=== PATIENT | female | born 1965 | race Caucasian/White ===

== ENCOUNTER 2020-05-27 10:42 | Outpatient (REF) | payer OTHER, SELFPAY | END 2020-05-27 10:43 | disposition home or self-care (01) | LOC: HO.HMGCLDS 10:42 | PROVIDERS: PCP Internal Medicine; Visit Provider Internal Medicine | DX: Z20.828 Contact with and (suspected) exposure to other viral communicable diseases (principal) | CPT/HCPCS: U0003 ==

== ENCOUNTER 2020-12-07 15:02 | Outpatient (REF) | payer OTHER, SELFPAY ==
--- NOTE | ~2020-12-07 | XR_ITS ---
EXAMINATION: XR ANKLE, RIGHT CLINICAL INFORMATION: Trauma, pain COMPARISON: None TECHNIQUE: AP, lateral, and mortise views of the right ankle. FINDINGS: There is no fracture dislocation or visible ankle capsular effusion. The malleoli are intact and the ankle mortise is symmetric. The retrocalcaneal recess is preserved. The subtalar joint is unremarkable. There are bulky posterior and plantar calcaneal spurs. XR/XR ankle RT min 3V IMPRESSION: 1. No fracture or dislocation. 2. Bulky posterior and plantar calcaneal spurs.
== END 2020-12-07 15:03 | disposition home or self-care (01) ==
LOC: HO.HMGCX 15:02
PROVIDERS: PCP Internal Medicine; Visit Provider Internal Medicine
DX: S99.911A Unspecified injury of right ankle, initial encounter (principal)
CPT/HCPCS: 73610

== ENCOUNTER 2021-02-21 17:00 | Outpatient (RCR) | payer OTHER, SELFPAY ==
--- NOTE | 2021-01-11 18:17 | MHC.PT.EP ---
[facility] [place] Office [place] Office [place] Office [address] Wilman Kirby [address] [phone] F: [phone] F: [phone] F: [phone] F: [phone] Physical Therapy Plan of Care Date of Evaluation: Date of Surgery: Diagnosis: unspecified injury of right ankle Assessment: 55 y/o F referred to PT for unspecified injury of R ankle. She reports the injury occurred while at work on 12/06/20 when she left the back door and thinks she may have twisted it on uneven surface. She followed up with Dr. Laurent, but continued to walk without restrictions and some pain. X-ray indicated no fracture. Currently pt reports pain and difficulty with increased sitting, walking, getting into/out of car, and stairs. Assessment reveals decreased R ankle AROM, decreased R gastroc length, tenderness of R fibular region and ankle, increased pain, decreased strength, and impaired gait pattern. Recommend PT 2x/week for 5 weeks to address impairments, implement HEP, and optimize functional mobility. Frequency and Duration: The patient will be seen 2x/week for 5 weeks Short Term Goals: 3 weeks: 1. I with HEP 2. Increase R ankle ROM DF by 5 degrees Fdc Goals: 5 weeks: 1. I with HEP and self-management of sx 2. Pt will be able to navigate stairs in step-through pattern with pain <3/10 3. Pt will be able to ambulate >30min with pain <3/10 Treatment Plan: Modalities to reduce pain, spasms and effusion. Manual therapy to restore motion and function. Therapeutic exercise to improve strength and flexibility. Neuromuscular re-education for posture and balance. Therapeutic activities to return to functional activities of daily living. Electronically signed by: Jolie Cheatham PT Please sign and return to therapist. Thank you for your referral.
--- NOTE | 2021-04-14 11:33 | MHC.PT.DC ---
[facility] [place] Office [place] Office [place] Office [address] Wilman Kirby [address] [phone] F: [phone] F: [phone] F: [phone] F: [phone] Physical Therapy Discharge Report Diagnosis: unspecified injury of right ankle Date of Surgery: Date of Evaluation: 01/11/21 Date of Discharge: 04/14/21 Treatments to Date: 9 Cancellations to Date: 0 No Shows to Date: 0 Discharge Status: Independent with HEP Visit Non-compliance Discharge Summary: Pt did not f/u with further visits. At time of last visit, pt was I with HEP Electronically signed by: Jolie Cheatham PT Please sign and return to therapist. Thank you for your referral.
== END 2021-04-14 11:34 | disposition home or self-care (01) ==
LOC: HO.PTCHIC 17:00
PROVIDERS: PCP Internal Medicine; Visit Provider Internal Medicine
DX: S99.911A Unspecified injury of right ankle, initial encounter (principal)
CPT/HCPCS: 97014; 97110; 97140; 97161; 97530

== ENCOUNTER → 2021-06-30 09:24 | Outpatient (BNVA) | payer OTHER, SELFPAY | PROVIDERS: PCP Internal Medicine; Visit Provider Orthopaedic Surgery | DX: S99.911A Unspecified injury of right ankle, initial encounter (principal) | CPT/HCPCS: 99202 ==

== ENCOUNTER 2021-07-14 09:22 | Outpatient (REF) | payer OTHER, SELFPAY ==
[2021-07-14 11:39] LABS: Hematocrit 45.8 % (37.0-47.0); Hemoglobin 15.3 g/dl (12.0-16.0); Mean Corpuscular HGB Conc 33.4 g/dl (31.0-35.0); Mean Corpuscular Hemoglobin 29.9 pg (27.0-33.0); Mean Corpuscular Volume 89.5 fL (80.0-98.0); Mean Platelet Volume 11.6 fL (9.4-12.3); Platelet Count 246 X10*3/uL (160-400); Red Blood Count 5.12 X10*6/uL (4.20-5.50); Red Cell Distribution Width 12.8 % (11.0-16.0); White Blood Count 5.8 X10*3/uL (4.8-10.8)
[2021-07-14 12:05] LABS: TSH reflex Free T4 0.18 uIU/mL (0.32-4.0)
[2021-07-14 12:12] LABS: Alanine Aminotransferase 41 U/L (0-31); Albumin Level 4.3 g/dL (3.5-5.0); Alkaline Phosphatase 63 U/L (39-117); Anion Gap 12 (12-20); Aspartate Amino Transferase 23 U/L (5-31); Bilirubin Total 0.5 mg/dL (0.0-1.0); Blood Urea Nitrogen 22 mg/dL (9-16); Calcium 9.4 mg/dL (8.4-10.2); Carbon Dioxide 26 mmol/L (22-29); Chloride 107 mmol/L (96-108); Cholesterol 265 mg/dL; Estimated Glomerular Filt Rate > 60; Glucose Fasting 116 mg/dL (60-99); HDL Cholesterol 50 mg/dL; LDL Cholesterol Calculated 188 mg/dl; Potassium 4.2 mmol/L (3.3-5.1); Sodium 141 mmol/L (135-145); Total Protein 7.3 g/dL (6.5-8.0); Triglycerides 135 mg/dL
[2021-07-14 13:18] LABS: Free T4 (Free Thyroxine) 1.14 ng/dL (0.71-1.85)
== END 2021-07-14 09:23 | disposition home or self-care (01) ==
LOC: HO.HMGCLDS 09:22
PROVIDERS: PCP Internal Medicine; Visit Provider Internal Medicine
DX: E78.5 Hyperlipidemia, unspecified (principal); I10 Essential (primary) hypertension
CPT/HCPCS: 36415; 80053; 80061; 84439; 84443; 85027

== ENCOUNTER 2021-09-28 06:22 | Outpatient (REF) | payer OTHER, SELFPAY ==
[2021-09-28 11:38] LABS: Alanine Aminotransferase 53 U/L (0-31); Albumin Level 4.2 g/dL (3.5-5.0); Alkaline Phosphatase 62 U/L (39-117); Anion Gap 12 (12-20); Aspartate Amino Transferase 28 U/L (5-31); Bilirubin Total 0.9 mg/dL (0.0-1.0); Blood Urea Nitrogen 15 mg/dL (9-16); Calcium 9.5 mg/dL (8.4-10.2); Carbon Dioxide 28 mmol/L (22-29); Chloride 104 mmol/L (96-108); Estimated Glomerular Filt Rate > 60; Glucose Fasting 118 mg/dL (60-99); Potassium 3.9 mmol/L (3.3-5.1); Sodium 140 mmol/L (135-145); Total Protein 7.1 g/dL (6.5-8.0)
[2021-09-28 11:39] LABS: Estimated Average Glucose 108 mg/dL; Hemoglobin A1c % 5.4 %
[2021-09-28 12:01] LABS: TSH reflex Free T4 0.08 uIU/mL (0.32-4.0)
[2021-09-28 12:37] LABS: Free T4 (Free Thyroxine) 1.18 ng/dL (0.71-1.85)
== END 2021-09-28 06:23 | disposition home or self-care (01) ==
LOC: HO.HMGCLDS 06:22
PROVIDERS: Visit Provider Internal Medicine
DX: E03.9 Hypothyroidism, unspecified (principal); I10 Essential (primary) hypertension; R73.9 Hyperglycemia, unspecified
CPT/HCPCS: 36415; 80053; 83036; 84439; 84443

== ENCOUNTER 2022-04-16 06:21 | Outpatient (REF) | payer OTHER, SELFPAY ==
[2022-04-16 11:54] LABS: Estimated Average Glucose 105 mg/dL; Hemoglobin A1c % 5.3 %
[2022-04-16 12:05] LABS: Alanine Aminotransferase 41 U/L (0-31); Albumin Level 4.1 g/dL (3.5-5.0); Alkaline Phosphatase 58 U/L (39-117); Anion Gap 15 (12-20); Aspartate Amino Transferase 28 U/L (5-31); Bilirubin Total 0.8 mg/dL (0.0-1.0); Blood Urea Nitrogen 20 mg/dL (9-16); Calcium 9.6 mg/dL (8.4-10.2); Carbon Dioxide 25 mmol/L (22-29); Chloride 104 mmol/L (96-108); Cholesterol 264 mg/dL; Estimated Glomerular Filt Rate > 60; Glucose Fasting 111 mg/dL (60-99); HDL Cholesterol 54 mg/dL; LDL Cholesterol Calculated 189 mg/dl; Potassium 3.9 mmol/L (3.3-5.1); Sodium 140 mmol/L (135-145); Total Protein 6.8 g/dL (6.5-8.0); Triglycerides 108 mg/dL
[2022-04-16 12:07] LABS: TSH reflex Free T4 0.57 uIU/mL (0.32-4.0)
[2022-04-16 12:16] LABS: Creatinine Urine 135.44 mg/dL; Microalbum/Creatinine Ratio Ur 6.6 ug/mg cr
== END 2022-04-16 06:22 | disposition home or self-care (01) ==
LOC: HO.HMGCLDS 06:21
PROVIDERS: PCP Internal Medicine; Visit Provider Internal Medicine
DX: Z00.00 Encounter for general adult medical examination without abnormal findings (principal); E78.5 Hyperlipidemia, unspecified; R73.9 Hyperglycemia, unspecified; E03.9 Hypothyroidism, unspecified
CPT/HCPCS: 36415; 80053; 80061; 82043; 83036; 84443

== ENCOUNTER 2022-12-06 06:06 | Outpatient (REF) | payer BC, SELFPAY ==
[2022-12-06 11:23] LABS: MANUAL DIFF FLAG NO
[2022-12-06 11:31] LABS: Appearance Urine Turbid; Color Urine Dark Yellow; Glucose Urine UA Negative (Negative); Leukocyte Esterase Urine Trace (Negative); Nitrite Urine Negative (Negative); PH 5.5 (5.0-9.0); Specific Gravity - Urine 1.025 (1.005-1.025); UMIC TRIGGER UA YES; Urine Blood Negative (Negative); Urine Ketones Negative (Negative); Urine Protein Negative (Neg-Trace)
[2022-12-06 11:38] LABS: Bacteria Urine 2+ (None Seen); Hyaline Casts Urine 0-2 /LPF (0-2); RBC Urine 0-2 /HPF (0-2); WBC Urine 0-5 /HPF (0-5)
[2022-12-06 11:44] LABS: Basophils Percent Auto 0.4 % (0-2); Eosinophils Absolute Auto 0.2 X10*3/uL (0.0-0.4); Eosinophils Percent Auto 3.6 % (0-4); Hematocrit 46.1 % (37.0-47.0); Hemoglobin 15.3 g/dl (12.0-16.0); Imm Gran Abs Auto 0.01 X10*3/uL (0.00-0.03); Imm Gran Pct Auto 0.2 % (0.0-0.4); Lymphocytes Absolute Auto 1.2 X10*3/uL (1.2-4.9); Lymphocytes Percent Auto 26.2 % (20-40); Mean Corpuscular HGB Conc 33.2 g/dl (31.0-35.0); Mean Corpuscular Hemoglobin 29.8 pg (27.0-33.0); Mean Corpuscular Volume 89.9 fL (80.0-98.0); Mean Platelet Volume 12.2 fL (9.4-12.3); Monocytes Absolute Auto 0.4 X10*3/uL (0.1-1.2); Monocytes Percent Auto 7.4 % (2-11); Neutrophils Absolute Auto 2.9 x10*3/uL (2.0-8.3); Neutrophils Percent Auto 62.2 % (45-73); Platelet Count 233 X10*3/uL (160-400); Red Blood Count 5.13 X10*6/uL (4.20-5.50); Red Cell Distribution Width 13.4 % (11.0-16.0); White Blood Count 4.7 X10*3/uL (4.8-10.8)
[2022-12-06 12:14] LABS: Alanine Aminotransferase 38 U/L (0-31); Albumin Level 4.3 g/dL (3.5-5.0); Alkaline Phosphatase 58 U/L (39-117); Anion Gap 14 (12-20); Aspartate Amino Transferase 22 U/L (5-31); Bilirubin Total 1.2 mg/dL (0.0-1.0); Blood Urea Nitrogen 19 mg/dL (9-16); Calcium 9.3 mg/dL (8.4-10.2); Carbon Dioxide 26 mmol/L (22-29); Chloride 105 mmol/L (96-108); Cholesterol 262 mg/dL; Estimated Glomerular Filt Rate > 60; Glucose Fasting 100 mg/dL (60-99); HDL Cholesterol 50 mg/dL; LDL Cholesterol Calculated 187 mg/dl; Potassium 3.8 mmol/L (3.3-5.1); Sodium 141 mmol/L (135-145); Triglycerides 127 mg/dL
[2022-12-06 12:18] LABS: TSH reflex Free T4 0.15 uIU/mL (0.32-4.0)
[2022-12-06 12:22] LABS: Estimated Average Glucose 103 mg/dL; Hemoglobin A1c % 5.2 %
[2022-12-06 14:27] LABS: Free T4 (Free Thyroxine) 1.36 ng/dL (0.71-1.85)
== END 2022-12-06 06:07 | disposition home or self-care (01) ==
LOC: HO.HMGCLDS 06:06
PROVIDERS: PCP Internal Medicine; Visit Provider Internal Medicine
DX: Z00.00 Encounter for general adult medical examination without abnormal findings (principal); E03.9 Hypothyroidism, unspecified; R73.9 Hyperglycemia, unspecified; E78.5 Hyperlipidemia, unspecified
CPT/HCPCS: 36415; 80053; 80061; 81001; 83036; 84439; 84443; 85025

== ENCOUNTER 2023-02-07 08:16 | Outpatient (REF) | payer BC, SELFPAY ==
--- NOTE | ~2023-02-07 | US_ITS ---
EXAMINATION: US ABDOMEN COMPLETE CLINICAL INFORMATION: Other specified abnormal findings of blood chemistry. COMPARISON: Ultrasound abdomen complete 01/16/2019. TECHNIQUE: Real-time imaging of the abdominal viscera. FINDINGS: PANCREAS: The pancreas is somewhat echogenic. No suspicious mass ABDOMINAL AORTA: The proximal, mid, and distal segments are normal in caliber. INFERIOR VENA CAVA: Visualized portions are normal. LIVER: The liver is normal in size. The liver contour is normal. There is diffuse increased liver parenchymal echogenicity, consistent with hepatic steatosis. Suspect areas of sparing. No focal hepatic lesion. There is no intrahepatic biliary duct dilatation seen. GALLBLADDER: Normal. The gallbladder is physiologically distended without evidence of stones, sludge, polyps, wall thickening or pericholecystic fluid. COMMON BILE DUCT: Normal in caliber measuring 0.3 cm in diameter. RIGHT KIDNEY: There are bright reflectors without shadowing. 2. Right reflectors were measured. In the upper pole there are bright reflectors close to the cortex measuring 0.6 cm. A second bright reflector measures 0.3 cm. No hydronephrosis or focal parenchymal lesions. The kidney measures 11.6 cm in maximum dimension. LEFT KIDNEY: The left renal contour is slightly lobular. There is a 1.6 cm nearly anechoic lobular structure extending to the cortex in the interpolar kidney. There may be some overlying cortical atrophy. There is a 0.3 cm bright reflector without shadowing. No hydronephrosis or other focal parenchymal lesions. The kidney measures 11.5 cm in maximum dimension. SPLEEN: Normal. The spleen measures 10.7 cm in maximum dimension. FREE FLUID: None. US/US abdomen complete IMPRESSION: There is no dilation of the urinary collecting system. There is no cholelithiasis or biliary dilation. Suspect fatty liver. Bright reflectors in each kidney could represent nonobstructing nonshadowing calculi. A cyst in the left kidney appears to have decreased in size. This does not require any further evaluation
== END 2023-02-07 08:17 | disposition home or self-care (01) ==
LOC: HO.HMGCX 08:16
PROVIDERS: PCP Internal Medicine; Visit Provider Internal Medicine
DX: M79.89 Other specified soft tissue disorders (principal)
CPT/HCPCS: 76700

== ENCOUNTER 2023-04-25 13:43 | Outpatient (AMB) | payer BC, SELFPAY ==
--- NOTE | 2023-04-25 13:44 | MHC.PC.OV ---
Vital Signs 04/25/23 13:45 Height 5 ft 4 in Weight 246 lb BMI 42.2 BP 122/74 Blood Pressure Location Lt brachial Position Sitting Pulse 80 Pulse Source Pulse Oximeter Pulse Oximetry (%) 97 Oxygen Delivery Method Room Air Intake Visit Reasons: Follow up on abdominal pain Intake Note: Pt is here today for a follow up visit. Pt states that she is still having R abdominal pain that radiates to her back. Allergies penicillin V Allergy (Unknown, Verified 01/31/23 12:23) rash Medication List - Last Reconciled 04/25/23 by Kenna Aden MD amlodipine-olmesartan 5-40 mg 1 tab PO DAILY [custom molded semi rigid orthosis As directed] fluticasone propionate 50 mcg/actuation 1 spray intranasal DAILY leg brace (RUTH Ankle Brace) As directed levothyroxine 125 mcg PO DAILY meloxicam 15 mg PO DAILY triamterene-hydrochlorothiazid 37.5-25 mg 1 tab PO DAILY Tobacco use date assessed: 04/25/23 HPI Follow up on abdominal pain HPI Details Pt c/o RUQ abd lower right-sided chest on and off for 2 weeks, no related to food intake, no N/V/ change in BM, dysuria, fever, chills. Abd US in 02/17 c/w fatty liver, nl gallbladder, non obstructing kidneys stones. [facility] Medical History Annual physical exam Hyperglycemia Hyperlipidemia Hypothyroid Overweight Right ankle injury Family History (Updated 04/25/23 @ 13:50 by Farzana Calle [facility]) Father Asthma Mother No problems noted. Social History Housing: House Alcohol intake: current Alcohol intake frequency: a few times a month Patient Tobacco Use Status: Never used Tobacco e-Cigarette/Vaping Use: Never Used Current occupational status: employed Cognitive needs: No Hearing needs: No Vision needs: Yes Questionnaire Thrive Questionnaire Date Thrive assessed: 12/07/22 MERCY-7 AMB Questionnaire MERCY-7 Date MERCY - 7 assessed: 12/07/22 Source: Developed by Drs. Beau Elliott, Melinda Carbajal, Tanner Estrada and colleagues, with an educational geovanny from [employer]. Review of Systems Const All systems reviewed & are unremarkable except as noted in HPI and below Eyes Reports no additional complaints ENT Reports no additional complaints Card Reports no additional complaints Resp Reports no additional complaints GI Reports no additional complaints Reports no additional complaints Physical exam (Primary Care) Vital Signs: Last Vital Signs Pulse 80 04/25/23 13:45 BP 122/74 04/25/23 13:45 Pulse Ox 97 04/25/23 13:45 Oxygen Delivery Method Room Air 04/25/23 13:45 BMI result Body Mass Index 42.2 Tobacco/Smoking Status: Tobacco use Status Tobacco use date assessed 04/25/23 04/25/23 13:53 Patient Tobacco Use Status Never used Tobacco 04/25/23 13:53 e-Cigarette/Vaping Use Never Used 04/25/23 13:53 Thrive Assessment: Date of Thrive Assessment Date Thrive assessed 12/07/22 04/25/23 13:53 Const General: no acute distress HENMT Throat: Yes posterior oropharynx normal Neck Neck: Yes supple Chest Chest palpation & inspection: localized rib tenderness with anteroposterior compression (right lower chest) Resp Effort & Inspection: normal respiratory effort Auscultation: clear to auscultation bilaterally Cardio Rhythm: regular rhythm Heart sounds: S1 normal heart sound present and S2 normal heart sound present GI Inspection: Yes normal to inspection Palpation (GI): Soft to palpation Percussion: Yes normal to percussion Auscultation: normal bowel sounds Assessment and Plan Assessment & Plan (1) Rib pain on right side: Code(s): R07.81 - Pleurodynia Plan: supportive care discussed (2) HTN (hypertension): Code(s): I10 - Essential (primary) hypertension Plan: cont meds Coding Level of Care Code Est Pt Level 3 (34701) Diagnoses Rib pain on right side R07.81 HTN (hypertension) I10
[2023-04-25 13:45] VITALS: BP 122/74; PULSE 80; O2SAT 97; BMI 42.2
== END 2023-04-25 14:45 | disposition home or self-care (01) ==
PROVIDERS: PCP Internal Medicine; Visit Provider Internal Medicine
DX: R07.81 Pleurodynia (principal); I10 Essential (primary) hypertension
CPT/HCPCS: 99213

== ENCOUNTER 2023-06-08 08:37 | Outpatient (REF) | payer BC, SELFPAY ==
[2023-06-08 12:02] LABS: MANUAL DIFF FLAG NO
[2023-06-08 12:11] LABS: Basophils Percent Auto 0.6 % (0-2); Eosinophils Absolute Auto 0.2 X10*3/uL (0.0-0.4); Eosinophils Percent Auto 3.9 % (0-4); Hematocrit 45.1 % (37.0-47.0); Imm Gran Abs Auto 0.02 X10*3/uL (0.00-0.03); Imm Gran Pct Auto 0.4 % (0.0-0.4); Lymphocytes Absolute Auto 1.6 X10*3/uL (1.2-4.9); Lymphocytes Percent Auto 28.9 % (20-40); Mean Corpuscular HGB Conc 33.3 g/dl (31.0-35.0); Mean Corpuscular Hemoglobin 30.4 pg (27.0-33.0); Mean Corpuscular Volume 91.5 fL (80.0-98.0); Mean Platelet Volume 11.7 fL (9.4-12.3); Monocytes Absolute Auto 0.3 X10*3/uL (0.1-1.2); Neutrophils Absolute Auto 3.2 x10*3/uL (2.0-8.3); Neutrophils Percent Auto 60.2 % (45-73); Platelet Count 269 X10*3/uL (160-400); Red Blood Count 4.93 X10*6/uL (4.20-5.50); Red Cell Distribution Width 12.6 % (11.0-16.0); White Blood Count 5.4 X10*3/uL (4.8-10.8)
[2023-06-08 12:34] LABS: Alanine Aminotransferase 29 U/L (0-31); Albumin Level 4.2 g/dL (3.5-5.0); Alkaline Phosphatase 61 U/L (39-117); Anion Gap 14 (12-20); Aspartate Amino Transferase 22 U/L (5-31); Bilirubin Total 0.7 mg/dL (0.0-1.0); Blood Urea Nitrogen 15 mg/dL (9-16); Calcium 9.3 mg/dL (8.4-10.2); Carbon Dioxide 25 mmol/L (22-29); Chloride 105 mmol/L (96-108); Cholesterol 260 mg/dL (<200); Estimated Glomerular Filt Rate > 60; Glucose Fasting 105 mg/dL (60-99); HDL Cholesterol 59 mg/dL (>40); LDL Cholesterol Calculated 178 mg/dL (<100); Potassium 3.8 mmol/L (3.3-5.1); Sodium 140 mmol/L (135-145); Total Protein 7.3 g/dL (6.5-8.0); Triglycerides 115 mg/dL (<150)
[2023-06-08 12:39] LABS: TSH reflex Free T4 0.54 uIU/mL (0.32-4.0)
== END 2023-06-08 08:38 | disposition home or self-care (01) ==
LOC: HO.HMGCLDS 08:37
PROVIDERS: PCP Internal Medicine; Visit Provider Internal Medicine
DX: R73.9 Hyperglycemia, unspecified (principal); E03.9 Hypothyroidism, unspecified; E78.5 Hyperlipidemia, unspecified; I10 Essential (primary) hypertension
CPT/HCPCS: 36415; 80053; 80061; 84443; 85025

== ENCOUNTER 2023-06-10 13:41 | Outpatient (AMB) | payer BC, SELFPAY ==
--- NOTE | 2023-06-10 13:57 | MHC.PC.OV ---
Vital Signs 06/10/23 13:59 Height 5 ft 4 in Weight 252 lb BMI 43.3 BP 126/82 Blood Pressure Location Lt brachial Position Sitting Pulse 70 Pulse Source Pulse Oximeter Pulse Oximetry (%) 94 Oxygen Delivery Method Room Air Intake Visit Reasons: 4 month Follow up Allergies penicillin V Allergy (Unknown, Verified 06/10/23 13:59) rash Medication List - Last Reconciled 06/10/23 by Kenna Aden MD amlodipine-olmesartan 5-40 mg 1 tab PO DAILY [custom molded semi rigid orthosis As directed] fluticasone propionate 50 mcg/actuation 1 spray intranasal DAILY leg brace (RUTH Ankle Brace) As directed levothyroxine 125 mcg PO DAILY meloxicam 15 mg PO DAILY triamterene-hydrochlorothiazid 37.5-25 mg 1 tab PO DAILY Tobacco use date assessed: 04/25/23 HPI 4 month Follow up HPI Details Patient presents for the follow-up on hypertension and hypothyroidism stable on current medications. [facility] Medical History Annual physical exam Hyperglycemia Hyperlipidemia Hypothyroid Overweight Right ankle injury Family History (Updated 04/25/23 @ 13:50 by Farzana Calle [facility]) Father Asthma Mother No problems noted. Social History Housing: House Alcohol intake: current Alcohol intake frequency: a few times a month Patient Tobacco Use Status: Never used Tobacco e-Cigarette/Vaping Use: Never Used Current occupational status: employed Cognitive needs: No Hearing needs: No Vision needs: Yes Questionnaire Thrive Questionnaire Date Thrive assessed: 12/07/22 MERCY-7 AMB Questionnaire MERCY-7 Date MERCY - 7 assessed: 12/07/22 Source: Developed by Drs. Beau Elliott, Melinda Carbajal, Tanner Estrada and colleagues, with an educational geovanny from [employer]. Review of Systems Const All systems reviewed & are unremarkable except as noted in HPI and below Reports no additional complaints Eyes Reports no additional complaints ENT Reports no additional complaints Card Reports no additional complaints Resp Reports no additional complaints GI Reports no additional complaints Reports no additional complaints Physical exam (Primary Care) Vital Signs: Last Vital Signs Pulse 70 06/10/23 13:59 BP 126/82 06/10/23 13:59 Pulse Ox 94 06/10/23 13:59 Oxygen Delivery Method Room Air 06/10/23 13:59 BMI result Body Mass Index 43.3 Tobacco/Smoking Status: Tobacco use Status Tobacco use date assessed 04/25/23 06/10/23 14:01 Patient Tobacco Use Status Never used Tobacco 06/10/23 14:01 e-Cigarette/Vaping Use Never Used 06/10/23 14:01 Thrive Assessment: Date of Thrive Assessment Date Thrive assessed 12/07/22 06/10/23 14:01 Const General: no acute distress HENMT Mouth: Normal oral and palatal mucosa present Neck Neck: Yes supple Resp Effort & Inspection: normal respiratory effort Auscultation: clear to auscultation bilaterally Cardio Rhythm: regular rhythm Heart sounds: S1 normal heart sound present and S2 normal heart sound present GI Inspection: Yes normal to inspection Palpation (GI): Soft to palpation Assessment and Plan Assessment & Plan (1) Hyperlipidemia: Comment: hyperlipidemia refuses statins Code(s): E78.5 - Hyperlipidemia, unspecified Plan: Continue low-cholesterol diet (2) Hyperglycemia: Code(s): R73.9 - Hyperglycemia, unspecified Plan: cont ADA diet, increase exercise, weight loss discussed (3) Hypothyroid: Code(s): E03.9 - Hypothyroidism, unspecified Plan: cont Levothyroxine (4) HTN (hypertension): Code(s): I10 - Essential (primary) hypertension Plan: cont meds, PE in 6 months Orders: Orders Comprehensive [place]. Panel Fast 6 Months E03.9 - Hypothyroidism, unspecified, E78.5 - Hyperlipidemia, unspecified, I10 - Essential (primary) hypertension, R73.9 - Hyperglycemia, unspecified TSH reflex Free T4 6 Months E03.9 - Hypothyroidism, unspecified, E78.5 - Hyperlipidemia, unspecified, I10 - Essential (primary) hypertension, R73.9 - Hyperglycemia, unspecified UA w Microscopic 6 Months E03.9 - Hypothyroidism, unspecified, E78.5 - Hyperlipidemia, unspecified, I10 - Essential (primary) hypertension, R73.9 - Hyperglycemia, unspecified Complete Blood Count Auto Diff 6 Months E03.9 - Hypothyroidism, unspecified, E78.5 - Hyperlipidemia, unspecified, I10 - Essential (primary) hypertension, R73.9 - Hyperglycemia, unspecified Lipid Panel 6 Months E03.9 - Hypothyroidism, unspecified, E78.5 - Hyperlipidemia, unspecified, I10 - Essential (primary) hypertension, R73.9 - Hyperglycemia, unspecified Medications: Refilled amlodipine-olmesartan 5-40 mg 1 tab PO DAILY 90 tabs 3RF levothyroxine 125 mcg PO DAILY 90 tabs 3RF triamterene-hydrochlorothiazid 37.5-25 mg 1 tab PO DAILY 90 tabs 3RF I10 - Essential (primary) hypertension Coding Level of Care Code Est Pt Level 4 (22535) Diagnoses Hyperlipidemia E78.5 Hyperglycemia R73.9 Hypothyroid E03.9 HTN (hypertension) I10
[2023-06-10 13:59] VITALS: BP 126/82; PULSE 70; O2SAT 94; BMI 43.3
== END 2023-06-10 14:56 | disposition home or self-care (01) ==
PROVIDERS: Visit Provider Internal Medicine
DX: E78.5 Hyperlipidemia, unspecified (principal); R73.9 Hyperglycemia, unspecified; E03.9 Hypothyroidism, unspecified; I10 Essential (primary) hypertension
CPT/HCPCS: 99214

== ENCOUNTER 2023-06-24 08:15 | Outpatient (AMB) | payer BC, SELFPAY ==
[2023-06-24 08:48] VITALS: BP 128/76; PULSE 78; TEMP 36.6; O2SAT 98; BMI 43.3
--- NOTE | 2023-06-24 08:48 | MHC.OFFWIV ---
Intake Vital Signs 06/24/23 08:48 Height 5 ft 4 in Weight 252 lb BMI 43.3 BP 128/76 Blood Pressure Location Lt brachial Position Sitting Pulse 78 Pulse Source Pulse Oximeter Temp 97.9 F Temp Source Temporal Artery Scan Pulse Oximetry (%) 98 Intake Visit Reasons: EST/cough/sore throat (masked lobby) Intake Note: pt is here for c.o cough, sore throat Patient Tobacco Use Status: Never used Tobacco Allergies penicillin V Allergy (Unknown, Verified 06/24/23 09:35) rash Medication List - Last Reconciled 06/24/23 by Yao Hernandez MD amlodipine-olmesartan 5-40 mg 1 tab PO DAILY [custom molded semi rigid orthosis As directed] fluticasone propionate 50 mcg/actuation 1 spray intranasal DAILY leg brace (RUTH Ankle Brace) As directed levothyroxine 125 mcg PO DAILY triamterene-hydrochlorothiazid 37.5-25 mg 1 tab PO DAILY Do you need a note to return to daycare/school/sports/work: Yes HPI EST/cough/sore throat (masked lobby) HPI Details Patient presents for a sick visit. Reporting symptoms of sinus congestion, sore throat and difficulty swallowing. Low-grade fever. No family member is sick. No recent travel. Patient reports symptoms of malaise and fatigue. [facility] Medical History Annual physical exam Hyperglycemia Hyperlipidemia Hypothyroid Overweight Right ankle injury Family History (Updated 04/25/23 @ 13:50 by Farzana Calle [facility]) Father Asthma Mother No problems noted. Housing: House Alcohol intake: current Alcohol intake frequency: a few times a month Patient Tobacco Use Status: Never used Tobacco e-Cigarette/Vaping Use: Never Used Current occupational status: employed Cognitive needs: No Hearing needs: No Vision needs: Yes Physical Exam Vital Signs: Last Vital Signs Temp 97.9 F 06/24/23 08:48 Pulse 78 06/24/23 08:48 BP 128/76 06/24/23 08:48 Pulse Ox 98 06/24/23 08:48 BMI result Body Mass Index 43.3 Const General: cooperative and healthy appearing Nutritional Appearance: well nourished Orientation/consciousness: patient oriented x3 Limitations: no limitations HEENT Head: Yes normal to inspection Eyes General: appearance normal, both eyes and all related structures Neck Neck: Yes normal visual inspection Chest Chest palpation & inspection: normal palpation of entire chest wall Resp Effort & Inspection: normal respiratory effort Neuro General: patient oriented x3 Results AMB Rapid Strep AMB Rapid Strep Negative Last Edit by Aram Luna CMA on 06/24/23 09:01 Results Reviewed Results Reviewed: Laboratory Last Values Strep Scn [facility] Negative 06/24/23 09:00 Assessment & Plan Assessment & Plan (1) Upper respiratory tract infection: Code(s): J06.9 - Acute upper respiratory infection, unspecified Plan: Antibiotics ordered. Increase fluid intake. Tylenol for aches and pains. If symptoms worsen, follow-up here for a recheck. Orders: Orders AMB Rapid Strep Screen Today Z13.9 - Encounter for screening, unspecified SARS-CoV2/FLU/RSV Today R43.9 - Unspecified disturbances of smell and taste Coding Level of Care Code Est Pt Level 3 (87903) Diagnoses Upper respiratory tract infection J06.9
== END 2023-06-24 09:39 | disposition home or self-care (01) ==
PROVIDERS: PCP Internal Medicine; Visit Provider Internal Medicine
DX: Z13.9 Encounter for screening, unspecified (principal); J06.9 Acute upper respiratory infection, unspecified
CPT/HCPCS: 87880; 99213

== ENCOUNTER 2023-06-24 09:14 | Outpatient (REF) | payer BC, SELFPAY ==
[2023-06-24 12:26] LABS: Influenza A PCR NEGATIVE (Negative); Influenza B PCR NEGATIVE (Negative); Resp Syncy Virus RNA Qual PCR NEGATIVE (Negative); SARS COV2 PCR INHOUSE NEGATIVE (Negative)
== END 2023-06-24 09:15 | disposition home or self-care (01) ==
LOC: HO.LNP 09:14
PROVIDERS: Visit Provider Internal Medicine
DX: Z11.52 Encounter for screening for COVID-19 (principal); Z20.822 Contact with and (suspected) exposure to COVID-19
CPT/HCPCS: 0241U

== ENCOUNTER 2023-12-07 08:33 | Outpatient (REF) | payer BC, SELFPAY ==
[2023-12-07 11:08] LABS: MANUAL DIFF FLAG NO
[2023-12-07 11:11] LABS: Basophils Percent Auto 0.7 % (0-2); Eosinophils Absolute Auto 0.2 X10*3/uL (0.0-0.4); Eosinophils Percent Auto 4.5 % (0-4); Hematocrit 44.6 % (37.0-47.0); Hemoglobin 15.1 g/dl (12.0-16.0); Imm Gran Abs Auto 0.01 X10*3/uL (0.00-0.03); Imm Gran Pct Auto 0.2 % (0.0-0.4); Lymphocytes Absolute Auto 1.4 X10*3/uL (1.2-4.9); Lymphocytes Percent Auto 30.8 % (20-40); Mean Corpuscular HGB Conc 33.9 g/dl (31.0-35.0); Mean Corpuscular Hemoglobin 30.6 pg (27.0-33.0); Mean Corpuscular Volume 90.3 fL (80.0-98.0); Mean Platelet Volume 11.7 fL (9.4-12.3); Monocytes Absolute Auto 0.3 X10*3/uL (0.1-1.2); Monocytes Percent Auto 6.3 % (2-11); Neutrophils Absolute Auto 2.5 x10*3/uL (2.0-8.3); Neutrophils Percent Auto 57.5 % (45-73); Platelet Count 233 X10*3/uL (160-400); Red Blood Count 4.94 X10*6/uL (4.20-5.50); White Blood Count 4.4 X10*3/uL (4.8-10.8)
[2023-12-07 11:21] LABS: Appearance Urine Cloudy; Color Urine Yellow; Glucose Urine UA Negative (Negative); Leukocyte Esterase Urine Trace (Negative); Nitrite Urine Negative (Negative); Specific Gravity - Urine 1.025 (1.005-1.025); UMIC TRIGGER UA YES; Urine Blood Trace (Negative); Urine Ketones Negative (Negative); Urine Protein Negative (Neg-Trace)
[2023-12-07 11:26] LABS: Bacteria Urine None Seen (None Seen); Hyaline Casts Urine 0-2 /LPF (0-2); WBC Urine 0-5 /HPF (0-5)
[2023-12-07 12:04] LABS: Alanine Aminotransferase 32 U/L (0-31); Albumin Level 4.2 g/dL (3.5-5.0); Alkaline Phosphatase 53 U/L (39-117); Anion Gap 15 (12-20); Aspartate Amino Transferase 21 U/L (5-31); Bilirubin Total 0.4 mg/dL (0.0-1.0); Blood Urea Nitrogen 21 mg/dL (9-16); Calcium 9.4 mg/dL (8.4-10.2); Carbon Dioxide 23 mmol/L (22-29); Chloride 108 mmol/L (96-108); Cholesterol 252 mg/dL (<200); Estimated Glomerular Filt Rate > 60; Glucose Fasting 102 mg/dL (60-99); HDL Cholesterol 56 mg/dL (>40); LDL Cholesterol Calculated 176 mg/dL (<100); Sodium 142 mmol/L (135-145); Total Protein 7.4 g/dL (6.5-8.0); Triglycerides 103 mg/dL (<150)
[2023-12-07 12:21] LABS: TSH reflex Free T4 0.38 uIU/mL (0.32-4.0)
== END 2023-12-07 08:34 | disposition home or self-care (01) ==
LOC: HO.HMGCLDS 08:33
PROVIDERS: PCP Internal Medicine; Visit Provider Internal Medicine
DX: E03.9 Hypothyroidism, unspecified (principal); E78.5 Hyperlipidemia, unspecified; R73.9 Hyperglycemia, unspecified; I10 Essential (primary) hypertension
CPT/HCPCS: 36415; 80053; 80061; 81001; 84443; 85025

== ENCOUNTER 2023-12-12 10:17 | Outpatient (AMB) | payer BC, SELFPAY ==
[2023-12-12 10:20] VITALS: BP 126/78; PULSE 78; O2SAT 97; BMI 43.8
--- NOTE | 2023-12-12 10:20 | A.OFFPC_ITS ---
Vital Signs 12/12/23 10:20 Height 5 ft 4 in Weight 255 lb BMI 43.8 BP 126/78 Blood Pressure Location Lt brachial Position Sitting Pulse 78 Pulse Source Pulse Oximeter Pulse Oximetry (%) 97 Oxygen Delivery Method Room Air Intake Visit Reasons: Annual PE Intake Note: Pt is here today for PE. Allergies penicillin V Allergy (Unknown, Verified 12/12/23 10:31) rash Medication List - Last Reconciled 12/12/23 by Kenna Aden MD amlodipine-olmesartan 5-40 mg 1 tab PO DAILY [custom molded semi rigid orthosis As directed] fluticasone propionate 50 mcg/actuation 1 spray intranasal DAILY leg brace (RUTH Ankle Brace) As directed levothyroxine 125 mcg PO DAILY triamterene-hydrochlorothiazid 37.5-25 mg 1 tab PO DAILY Tobacco use date assessed: 12/12/23 Dental Screening Dental Screen Date: 12/12/23 Did you have a dental visit in the last 12 months?: Yes Did you have a dental problem in the last 6 months where you did not have access to dental care?: No Was dental information given to patient?: Patient has dentist HPI Annual PE HPI Details Pt presents for PE. [facility] Medical History (Updated 12/12/23 @ 11:54 by Kenna Aden MD) Annual physical exam Hyperglycemia Hypothyroid Hyperlipidemia Overweight Right ankle injury Surgical History (Updated 12/12/23 @ 10:34 by BIJAL Alexandre) Hx of section Family History Father Asthma Mother No problems noted. Social History Housing: House Alcohol intake: current Alcohol intake frequency: a few times a month Patient Tobacco Use Status: Never used Tobacco e-Cigarette/Vaping Use: Never Used service: No Current occupational status: employed Cognitive needs: No Hearing needs: No Vision needs: Yes Questionnaire PHQ-9 Over the last 2 weeks, how often have you been bothered by any of the following problems? 1. Little interest or pleasure in doing things: not at all 2. Feeling down, depressed, or hopeless: not at all 3. Trouble falling or staying asleep, or sleeping too much: not at all 4. Feeling tired or having little energy: not at all 5. Poor appetite or overeating: not at all 6. Feeling bad about yourself - or that you are a failure or have let yourself or your family down: not at all 7. Trouble concentrating on things, such as reading the newspaper or watching television: not at all 8. Moving or speaking so slowly that other people could have noticed. Or the opposite - being so fidgety or restless that you have been moving around a lot more than usual: not at all 9. Thoughts that you would be better off or of hurting yourself in some way: not at all Total score: 0 Depression Screening Interpretation: Negative Depression Screening Done: Yes Source: Developed by Drs. Beau Elliott, Melinda Carbajal, Tanner Estrada and colleagues, with an educational geovanny from [employer]. Thrive Questionnaire Date Thrive assessed: 12/12/23 I am a: Patient What is your living situation today?: I have a steady place to live Within the past 12 months, did the food you bought not last and you didn't have the money to get more?: Never true Within the past 12 months, did you worry whether your food would run out before you got money to buy more?: Never true Do you have trouble paying for medicines?: No Do you have trouble getting transportation to medical appointments?: No Do you have trouble paying your heating and electricity bill?: No Do you have trouble taking care of your child, family member or friend?: No Do you have trouble with day-to-day activities such as bathing, preparing meals, shopping, managing finances, etc.?: No Are you currently unemployed and looking for a job?: No Are you interested in more education?: No Please select the resources that you would like help with: None THRIVE Score: 0 AUDIT C Alcohol Use Questionnaire (AUDIT-C) 1. How often do you have a drink containing alcohol?: Never 3. How often do you have six or more drinks on one occasion?: Never Total Score: 0 MERCY-7 AMB Questionnaire MERCY-7 Date MERCY - 7 assessed: 12/12/23 Feeling nervous, anxious, or on edge: 0 = Not at all Not being able to stop or control worryin = Not at all Worrying too much about different things: 0 = Not at all Trouble relaxin = Not at all Being so restless that it is hard to sit still: 0 = Not at all Becoming easily annoyed or irritable: 0 = Not at all Feeling afraid as if something awful might happen: 0 = Not at all Total MERCY-7 score (0-4 normal; 5-9 mild; 10-14 moderate; 15-21 severe): 0 Source: Developed by Drs. Beau Elliott, Melinda Carbajal, Tanner Estrada and colleagues, with an educational geovanny from [employer]. Review of Systems Const All systems reviewed & are unremarkable except as noted in HPI and below Reports no additional complaints Eyes Reports no additional complaints ENT Reports no additional complaints Card Reports no additional complaints Resp Reports no additional complaints GI Reports no additional complaints Reports no additional complaints Physical exam (Primary Care) Vital Signs: Last Vital Signs Pulse 78 12/12/23 10:20 BP 126/78 12/12/23 10:20 Pulse Ox 97 12/12/23 10:20 Oxygen Delivery Method Room Air 12/12/23 10:20 BMI result Body Mass Index 43.8 Tobacco/Smoking Status: Tobacco use Status Tobacco use date assessed 12/12/23 12/12/23 10:36 Patient Tobacco Use Status Never used Tobacco 12/12/23 10:36 e-Cigarette/Vaping Use Never Used 12/12/23 10:20 PHQ-9: PHQ-9 Score PHQ-9: Total score 0 12/12/23 10:36 Depression Screening Interpretation: Negative Thrive Assessment: Date of Thrive Assessment Date Thrive assessed 12/12/23 12/12/23 10:36 Const General: no acute distress HENMT Head: Yes normal to inspection Ears: hearing grossly normal bilaterally Eyes General: appearance normal, both eyes and all related structures Neck Neck: Yes no lymphadenopathy and Yes supple Resp Effort & Inspection: normal respiratory effort Auscultation: clear to auscultation bilaterally Cardio Rhythm: regular rhythm Heart sounds: S1 normal heart sound present and S2 normal heart sound present GI Inspection: Yes normal to inspection Palpation (GI): Soft to palpation Percussion: Yes normal to percussion Auscultation: normal bowel sounds Assessment and Plan Assessment & Plan (1) Dysuria: Code(s): R30.0 - Dysuria Plan: check urine culture (2) HTN (hypertension): Code(s): I10 - Essential (primary) hypertension Plan: Continue medications (3) Hyperlipidemia: Comment: hyperlipidemia refuses medications Code(s): E78.5 - Hyperlipidemia, unspecified Plan: Continue low-cholesterol diet (4) Hypothyroid: Code(s): E03.9 - Hypothyroidism, unspecified Plan: Continue levothyroxine (5) Hyperglycemia: Code(s): R73.9 - Hyperglycemia, unspecified Plan: Continue ADA diet increase exercise weight loss discussed with the patient (6) Annual physical exam: Code(s): Z00.00 - Encounter for general adult medical examination without abnormal findings Plan: Well-balanced diet regular exercise weight loss discussed with the patient, she will return in 6 months with a fasting labs before Orders: Orders Complete Blood Count Auto Diff 6 Months E03.9 - Hypothyroidism, unspecified, E78.5 - Hyperlipidemia, unspecified, I10 - Essential (primary) hypertension, R73.9 - Hyperglycemia, unspecified, Z00.00 - Encounter for general adult medical examination without abnormal findings Urine Culture Today R30.0 - Dysuria Comprehensive [place]. Panel Fast 6 Months E03.9 - Hypothyroidism, unspecified, E78.5 - Hyperlipidemia, unspecified, I10 - Essential (primary) hypertension, R7 3.9 - Hyperglycemia, unspecified, Z00.00 - Encounter for general adult medical examination without abnormal findings Lipid Panel 6 Months E03.9 - Hypothyroidism, unspecified, E78.5 - Hyperlipidemia, unspecified, I10 - Essential (primary) hypertension, R73.9 - Hyperglycemia, unspecified, Z00.00 - Encounter for general adult medical examination without abnormal findings Hemoglobin A1c 6 Months E03.9 - Hypothyroidism, unspecified, E78.5 - Hyperlipidemia, unspecified, I10 - Essential (primary) hypertension, R73.9 - Hyperglycemia, unspecified, Z00.00 - Encounter for general adult medical examination without abnormal findings TSH reflex Free T4 6 Months E03.9 - Hypothyroidism, unspecified, E78.5 - Hyperlipidemia, unspecified, I10 - Essential (primary) hypertension, R73.9 - Hyperglycemia, unspecified, Z00.00 - Encounter for general adult medical examination without abnormal findings UA w Microscopic 6 Months E03.9 - Hypothyroidism, unspecified, E78.5 - Hyperlipidemia, unspecified, I10 - Essential (primary) hypertension, R73.9 - Hyperglycemia, unspecified, Z00.00 - Encounter for general adult medical examination without abnormal findings Coding Level of Care Code Est Pt Prev Care 40-64y(40886) Diagnoses Dysuria R30.0 HTN (hypertension) I10 Hyperlipidemia E78.5 Hypothyroid E03.9 Hyperglycemia R73.9 Annual physical exam Z00.00
== END 2023-12-12 11:50 | disposition home or self-care (01) ==
PROVIDERS: Visit Provider Internal Medicine
DX: R30.0 Dysuria (principal); I10 Essential (primary) hypertension; E78.5 Hyperlipidemia, unspecified; E03.9 Hypothyroidism, unspecified; R73.9 Hyperglycemia, unspecified; Z00.00 Encounter for general adult medical examination without abnormal findings
CPT/HCPCS: 99396

== ENCOUNTER 2023-12-12 11:51 | Outpatient (REF) | payer BC, SELFPAY | END 2023-12-12 11:52 | disposition home or self-care (01) | LOC: HO.HMGCLDS 11:51 | PROVIDERS: PCP Internal Medicine; Visit Provider Internal Medicine | DX: R30.0 Dysuria (principal) | CPT/HCPCS: 87086 ==

== ENCOUNTER 2024-02-15 12:39 | Outpatient (AMB) | payer BC, SELFPAY ==
[2024-02-15 12:40] VITALS: BP 136/80; PULSE 76; TEMP 37.1; O2SAT 96; BMI 45.0
--- NOTE | 2024-02-15 12:40 | AM.OFFWIN_ITS ---
Intake Vital Signs 3 02/15/24 12:40 Height 5 ft 4 in Weight 262 lb BMI 45.0 BP 136/80 Blood Pressure Location Rt brachial Position Sitting Pulse 76 Pulse Source Pulse Oximeter Temp 98.7 F Temp Source Oral Pulse Oximetry (%) 96 Oxygen Delivery Method Room Air Intake Visit Reasons: EP lft hand pain/swelling Intake Note: Pt is here today c/o Lt hand pain and swelling Patient Tobacco Use Status: Never used Tobacco Allergies penicillin V Allergy (Unknown, Verified 02/15/24 12:52) rash Medication List - Last Reconciled 02/15/24 by Kimberly Khan, [facility]- amlodipine-olmesartan 5-40 mg 1 tab PO DAILY [custom molded semi rigid orthosis As directed] fluticasone propionate 50 mcg/actuation 1 spray intranasal DAILY leg brace (RUTH Ankle Brace) As directed levothyroxine 125 mcg PO DAILY triamterene-hydrochlorothiazid 37.5-25 mg 1 tab PO DAILY HPI HPI Comments 2 History of Present Illness0 Details 58-year-old female here today with compl aints of left hand pain. Reports that her pain started 3 months ago. It comes and goes. When the pain is present it is on the palmar surface near her ring finger. It hurts worse when she presses the area. She feels like maybe she is able to feel a bump there. Recently saw commercial on TV for Dupuytren's contracture and she wonders if this is what is causing her pain. Denies any trauma to the hand, redness to the skin, history of gout, loss of function, decreased strength. Plan X-rays today of the left hand, referral placed to the orthopedic group for further evaluation and treatment. Will be called if any + findings of Xray otherwise no call will be made At the time of this note closure, there is no read on the Xray of L hand. This note is constructed using voice recognition software. While every effort has been made to ensure accuracy in returned materials inspector, still errors may have been included Sometimes, these errors may affect the content or meaning of the given sentence . Total time spent caring for the patient today was 30 minutes. This includes time spent before the visit reviewing the chart, time spent during the visit, and time spent after the visit on documentation [facility] Medical History (Updated 07/20/24 @ 12:57 by Kimberly Khan, [facility]) Annual physical exam Hyperglycemia Hypothyroid Hyperlipidemia Overweight Right ankle injury Surgical History (Updated 12/12/23 @ 10:34 by BIJAL Alexandre) Hx of section Family History Father Asthma Mother No problems noted. Social History Housing: House Alcohol intake: current Alcohol intake frequency: a few times a month Patient Tobacco Use Status: Never used Tobacco e-Cigarette/Vaping Use: Never Used service: No Current occupational status: employed Cognitive needs: No Hearing needs: No Vision needs: Yes Physical Exam Vital Signs: Last Vital Signs Temp 98.7 F 02/15/24 12:40 Pulse 76 02/15/24 12:40 BP 136/80 02/15/24 12:40 Pulse Ox 96 02/15/24 12:40 Oxygen Delivery Method Room Air 02/15/24 12:40 BMI result Body Mass Index 45.0 Extrem Hand/finger images: 2 1. Pain with palpation, no palpable lesion or area of concern noted on exam. Left hand neurovascularly intact, no obvious deformity, back up scan coordinator strength within normal limits Assessment & Plan Assessment & Plan (1) Left hand pain: Code(s): M79.642 - Pain in left hand Plan: . Plan . Orders: Orders 2 XR hand LT min 3V Today M79.642 - Pain in left hand Referrals 2 Orthopedics Referral M79.642 - Pain in left hand Coding Level of Care Code Est Pt Level 4 (18632) Diagnoses Left hand pain M79.642
== END 2024-02-15 13:40 | disposition home or self-care (01) ==
PROVIDERS: PCP Internal Medicine; Visit Provider Nurse Practitioner Family
DX: M79.642 Pain in left hand (principal)
CPT/HCPCS: 99214

== ENCOUNTER 2024-02-15 13:29 | Outpatient (REF) | payer BC, SELFPAY ==
--- NOTE | ~2024-02-15 | XR_ITS ---
EXAMINATION: XR HAND, LEFT CLINICAL INFORMATION: Pain. COMPARISON: None available. TECHNIQUE: PA, lateral, and oblique views of the left hand. FINDINGS: No acute fracture or subluxation. No significant degenerative changes. No erosions. No unusual soft tissue calcifications nor unexpected radiopaque foreign bodies. XR/XR hand LT min 3V IMPRESSION: 1. No acute fractures or malalignment. 2. No significant degenerative changes.
== END 2024-02-15 13:30 | disposition home or self-care (01) ==
LOC: HO.HMGCX 13:29
PROVIDERS: PCP Internal Medicine; Visit Provider Nurse Practitioner Family
DX: M79.642 Pain in left hand (principal)
CPT/HCPCS: 73130

== ENCOUNTER 2024-05-21 06:08 | Outpatient (REF) | payer BC, SELFPAY ==
[2024-05-21 10:12] LABS: MANUAL DIFF FLAG NO
[2024-05-21 10:16] LABS: Eosinophils Absolute Auto 0.2 X10*3/uL (0.0-0.4); Hematocrit 45.8 % (37.0-47.0); Hemoglobin 15.5 g/dl (12.0-16.0); Imm Gran Abs Auto 0.01 X10*3/uL (0.00-0.03); Imm Gran Pct Auto 0.2 % (0.0-0.4); Lymphocytes Absolute Auto 1.4 X10*3/uL (1.2-4.9); Mean Corpuscular HGB Conc 33.8 g/dl (31.0-35.0); Mean Corpuscular Hemoglobin 30.2 pg (27.0-33.0); Mean Corpuscular Volume 89.1 fL (80.0-98.0); Mean Platelet Volume 11.4 fL (9.4-12.3); Monocytes Absolute Auto 0.4 X10*3/uL (0.1-1.2); Neutrophils Absolute Auto 2.1 x10*3/uL (2.0-8.3); Neutrophils Percent Auto 49.8 % (45-73); Platelet Count 260 X10*3/uL (160-400); Red Blood Count 5.14 X10*6/uL (4.20-5.50); Red Cell Distribution Width 12.8 % (11.0-16.0); White Blood Count 4.2 X10*3/uL (4.8-10.8)
[2024-05-21 10:33] LABS: Estimated Average Glucose 105 mg/dL; Hemoglobin A1C 136.4489 umol/L; Hemoglobin A1c % 5.3 % (<6.0); Total Hemoglobin (HGBA1C) 3921.9971 umol/L
[2024-05-21 10:50] LABS: Alanine Aminotransferase 56 U/L (0-31); Albumin Level 4.2 g/dL (3.5-5.0); Alkaline Phosphatase 53 U/L (39-117); Anion Gap 13 (12-20); Aspartate Amino Transferase 36 U/L (5-31); Bilirubin Total 0.6 mg/dL (0.0-1.0); Blood Urea Nitrogen 17 mg/dL (9-16); Calcium 9.6 mg/dL (8.4-10.2); Carbon Dioxide 26 mmol/L (22-29); Chloride 105 mmol/L (96-108); Cholesterol 251 mg/dL (<200); Estimated Glomerular Filt Rate > 60; Glucose Fasting 108 mg/dL (60-99); HDL Cholesterol 45 mg/dL (>40); LDL Cholesterol Calculated 182 mg/dL (<100); Potassium 3.6 mmol/L (3.3-5.1); Sodium 140 mmol/L (135-145); Total Protein 7.1 g/dL (6.5-8.0); Triglycerides 123 mg/dL (<150)
[2024-05-21 10:53] LABS: Appearance Urine Turbid; Color Urine Yellow; Glucose Urine UA Negative (Negative); Leukocyte Esterase Urine Small (1+) (Negative); Nitrite Urine Negative (Negative); PH 5.5 (5.0-9.0); UMIC TRIGGER UA YES; Urine Blood Negative (Negative); Urine Ketones Negative (Negative); Urine Protein Negative (Neg-Trace)
[2024-05-21 10:58] LABS: TSH reflex Free T4 0.79 uIU/mL (0.32-4.0)
[2024-05-21 11:12] LABS: Bacteria Urine 4+ (None Seen); Hyaline Casts Urine 0-2 /LPF (0-2); RBC Urine 0-2 /HPF (0-2); Squamous Epithelial Cell Urine >20 /HPF (0-2); WBC Urine 21-50 /HPF (0-5)
== END 2024-05-21 06:09 | disposition home or self-care (01) ==
LOC: HO.HMGCLDS 06:08
PROVIDERS: PCP Internal Medicine; Visit Provider Internal Medicine
DX: Z00.00 Encounter for general adult medical examination without abnormal findings (principal); R73.9 Hyperglycemia, unspecified; E03.9 Hypothyroidism, unspecified; I10 Essential (primary) hypertension; E78.5 Hyperlipidemia, unspecified
CPT/HCPCS: 36415; 80053; 80061; 81001; 83036; 84443; 85025

== ENCOUNTER 2024-05-21 11:06 | Outpatient (AMB) | payer BC, SELFPAY ==
[2024-05-21 11:20] VITALS: BP 110/68; PULSE 76; O2SAT 96; BMI 43.3
--- NOTE | 2024-05-21 11:20 | MHC.PC.OV ---
Vital Signs 05/21/24 11:20 Height 5 ft 4 in Weight 252 lb BMI 43.3 BP 110/68 Blood Pressure Location Lt brachial Position Sitting Pulse 76 Pulse Source Pulse Oximeter Pulse Oximetry (%) 96 Oxygen Delivery Method Room Air Intake Visit Reasons: 6 month follow up Intake Note: Pt is here today for 6 months follow up visit on labs. Allergies penicillin V Allergy (Unknown, Verified 05/21/24 11:23) rash Medication List - Last Reconciled 05/21/24 by Kenna Aden MD amlodipine-olmesartan 5-40 mg 1 tab PO DAILY [custom molded semi rigid orthosis As directed] fluticasone propionate 50 mcg/actuation 1 spray intranasal DAILY leg brace (RUTH Ankle Brace) As directed levothyroxine 125 mcg PO DAILY omeprazole 20 mg PO DAILY triamterene-hydrochlorothiazid 37.5-25 mg 1 tab PO DAILY Tobacco use date assessed: 05/21/24 Dental Screening Dental Screen Date: 12/12/23 HPI 6 month follow up HPI Details Patient presents for the follow-up of hypothyroidism hypertension diet controlled hyperlipidemia and obesity. Patient reports intermittent epigastric abdominal discomfort on and off for 1 week had episode of diarrhea but denies fever chills hematochezia melena PFSH Medical History Annual physical exam Hyperglycemia Hypothyroid Hyperlipidemia Overweight Right ankle injury Surgical History Hx of section Family History Father Asthma Mother No problems noted. Social History Housing: House Alcohol intake: current Alcohol intake frequency: a few times a month Patient Tobacco Use Status: Never used Tobacco e-Cigarette/Vaping Use: Never Used service: No Current occupational status: employed Cognitive needs: No Hearing needs: No Vision needs: Yes Questionnaire Thrive Questionnaire Date Thrive assessed: 12/12/23 MERCY-7 AMB Questionnaire MERCY-7 Date MERCY - 7 assessed: 12/12/23 Source: Developed by Drs. Beau Elliott, Melinda Carbajal, Tanner Estrada and colleagues, with an educational geovanny from [employer]. Review of Systems Const All systems reviewed & are unremarkable except as noted in HPI and below ENT Reports no additional complaints Card Reports no additional complaints Resp Reports no additional complaints GI Reports no additional complaints Reports no additional complaints Physical exam (Primary Care) Vital Signs: Last Vital Signs Pulse 76 05/21/24 11:20 BP 110/68 05/21/24 11:20 Pulse Ox 96 05/21/24 11:20 Oxygen Delivery Method Room Air 05/21/24 11:20 BMI result Body Mass Index 43.3 Tobacco/Smoking Status: Tobacco use Status Tobacco use date assessed 05/21/24 05/21/24 11:26 Patient Tobacco Use Status Never used Tobacco 05/21/24 11:21 e-Cigarette/Vaping Use Never Used 05/21/24 11:21 Thrive Assessment: Date of Thrive Assessment Date Thrive assessed 12/12/23 05/21/24 11:21 Const General: no acute distress HENMT Head: Yes normal to inspection General nose exam: Normal external nose present Face and sinus: Yes normal facial exam Mouth: Normal oral and palatal mucosa present Throat: Yes posterior oropharynx normal Eyes General: appearance normal, both eyes and all related structures Neck Neck: Yes no lymphadenopathy and Yes supple Resp Effort & Inspection: normal respiratory effort Auscultation: clear to auscultation bilaterally Cardio Rhythm: regular rhythm Heart sounds: S1 normal heart sound present and S2 normal heart sound present GI Inspection: Yes normal to inspection Palpation (GI): Soft to palpation Percussion: Yes normal to percussion Auscultation: normal bowel sounds Coding Level of Care Code Est Pt Level 4 (07857) Diagnoses Hyperlipidemia E78.5 Hyperglycemia R73.9 Hypothyroid E03.9 HTN (hypertension) I10 Assessment & Plan Assessment & Plan (1) Hyperlipidemia: Comment: hyperlipidemia refuses medications Code(s): E78.5 - Hyperlipidemia, unspecified Category: Medical Plan: Continue low-cholesterol diet increase physical activity and weight loss discussed with the patient. She will return for physical with a fasting labs before (2) Hyperglycemia: Code(s): R73.9 - Hyperglycemia, unspecified Category: Medical Plan: A1c is 5.3, continue ADA diet (3) Hypothyroid: Code(s): E03.9 - Hypothyroidism, unspecified Category: Medical Plan: Continue levothyroxine (4) HTN (hypertension): Code(s): I10 - Essential (primary) hypertension Category: Medical Plan: Continue current medications Orders: Orders Complete Blood Count Auto Diff 8 Months E03.9 - Hypothyroidism, unspecified, E78.5 - Hyperlipidemia, unspecified, R73.9 - Hyperglycemia, unspecified, Z00.00 - Encounter for general adult medical examination without abnormal findings Lipid Panel 8 Months E03.9 - Hypothyroidism, unspecified, E78.5 - Hyperlipidemia, unspecified, R73.9 - Hyperglycemia, unspecified, Z00.00 - Encounter for general adult medical examination without abnormal findings Hemoglobin A1c 8 Months E03.9 - Hypothyroidism, unspecified, E78.5 - Hyperlipidemia, unspecified, R73.9 - Hyperglycemia, unspecified, Z00.00 - Encounter for general adult medical examination without abnormal findings TSH reflex Free T4 8 Months E03.9 - Hypothyroidism, unspecified, E78.5 - Hyperlipidemia, unspecified, R73.9 - Hyperglycemia, unspecified, Z00.00 - Encounter for general adult medical examination without abnormal findings Microalbumin, Random (w Creat) 8 Months E03.9 - Hypothyroidism, unspecified, E78.5 - Hyperlipidemia, unspecified, R73.9 - Hyperglycemia, unspecified, Z00.00 - Encounter for general adult medical examination without abnormal findings Comprehensive [place]. Panel Fast 8 Months E03.9 - Hypothyroidism, unspecified, E78.5 - Hyperlipidemia, unspecified, R73.9 - Hyperglycemia, unspecified, Z00.00 - Encounter for general adult medical examination without abnormal findings Medications: New omeprazole 20 mg PO DAILY 30 caps 0RF
== END 2024-05-21 14:48 | disposition home or self-care (01) ==
PROVIDERS: PCP Internal Medicine; Visit Provider Internal Medicine
DX: E78.5 Hyperlipidemia, unspecified (principal); R73.9 Hyperglycemia, unspecified; E03.9 Hypothyroidism, unspecified; I10 Essential (primary) hypertension

== ENCOUNTER 2025-01-02 12:11 | Outpatient (REF) | payer OTHER, SELFPAY ==
[2025-01-02 13:29] LABS: MANUAL DIFF FLAG NO
[2025-01-02 13:34] LABS: Basophils Percent Auto 0.4 % (0-2); Eosinophils Absolute Auto 0.2 X10*3/uL (0.0-0.4); Hematocrit 42.4 % (37.0-47.0); Hemoglobin 14.7 g/dl (12.0-16.0); Imm Gran Abs Auto 0.02 X10*3/uL (0.00-0.03); Imm Gran Pct Auto 0.3 % (0.0-0.4); Lymphocytes Absolute Auto 1.6 X10*3/uL (1.2-4.9); Lymphocytes Percent Auto 22.5 % (20-40); Mean Corpuscular HGB Conc 34.7 g/dl (31.0-35.0); Mean Corpuscular Hemoglobin 30.4 pg (27.0-33.0); Mean Corpuscular Volume 87.8 fL (80.0-98.0); Mean Platelet Volume 11.4 fL (9.4-12.3); Monocytes Absolute Auto 0.4 X10*3/uL (0.1-1.2); Monocytes Percent Auto 5.6 % (2-11); Neutrophils Absolute Auto 4.8 x10*3/uL (2.0-8.3); Neutrophils Percent Auto 68.2 % (45-73); Platelet Count 237 X10*3/uL (160-400); Red Blood Count 4.83 X10*6/uL (4.20-5.50); Red Cell Distribution Width 12.6 % (11.0-16.0)
[2025-01-02 13:42] LABS: Estimated Average Glucose 108 mg/dL; Hemoglobin A1c % 5.4 % (<6.0)
[2025-01-02 13:53] LABS: Alanine Aminotransferase 34 U/L (0-31); Albumin Level 4.6 g/dL (3.5-5.0); Anion Gap 15 (12-20); Aspartate Amino Transferase 30 U/L (5-31); Bilirubin Total 0.6 mg/dL (0.0-1.0); Blood Urea Nitrogen 18 mg/dL (9-16); Calcium 9.9 mg/dL (8.4-10.2); Carbon Dioxide 25 mmol/L (22-29); Chloride 107 mmol/L (96-108); Cholesterol 253 mg/dL (<200); Estimated Glomerular Filt Rate > 60; Glucose Fasting 104 mg/dL (60-99); HDL Cholesterol 56 mg/dL (>40); LDL Cholesterol Calculated 173 mg/dL (<100); Potassium 3.6 mmol/L (3.3-5.1); Sodium 143 mmol/L (135-145); Total Protein 7.3 g/dL (6.5-8.0); Triglycerides 121 mg/dL (<150)
[2025-01-02 14:01] LABS: Creatinine Urine 177.16 mg/dL; Microalbum/Creatinine Ratio Ur 16.9 ug/mg cr (<30)
[2025-01-02 14:09] LABS: TSH reflex Free T4 0.29 uIU/mL (0.32-4.0)
[2025-01-02 14:42] LABS: Free T4 (Free Thyroxine) 1.21 ng/dL (0.71-1.85)
[2025-01-02 18:47] LABS: Alkaline Phosphatase 61 U/L (39-117)
== END 2025-01-02 12:12 | disposition home or self-care (01) ==
LOC: HO.HMGCLDS 12:11
PROVIDERS: PCP Internal Medicine; Visit Provider Internal Medicine
DX: Z00.00 Encounter for general adult medical examination without abnormal findings (principal); E78.5 Hyperlipidemia, unspecified; R73.9 Hyperglycemia, unspecified; E03.9 Hypothyroidism, unspecified
CPT/HCPCS: 36415; 80053; 80061; 82043; 82570; 83036; 84439; 84443; 85025

== ENCOUNTER 2025-01-04 13:48 | Outpatient (AMB) | payer OTHER, SELFPAY ==
[2025-01-04 14:38] VITALS: BP 122/74; PULSE 67; RESP 18; TEMP 36.5; O2SAT 96; BMI 45.0
--- NOTE | 2025-01-04 14:38 | A.OFFPC_ITS ---
Vital Signs 01/04/25 14:38 Height 5 ft 4 in Weight 262 lb BMI 45.0 BP 122/74 Blood Pressure Location Lt brachial Position Sitting Respiration 18 Pulse 67 Pulse Source Pulse Oximeter Temp 97.7 F Temp Source Oral Pulse Oximetry (%) 96 Oxygen Delivery Method Room Air Intake Visit Reasons: Annual PE Intake Note: Pt is here today for PE. Allergies penicillin V Allergy (Unknown, Verified 01/04/25 14:50) rash Medication List - Last Reconciled 01/04/25 by Kenna Aden MD amlodipine-olmesartan 5-40 mg 1 tab PO DAILY [custom molded semi rigid orthosis As directed] fluticasone propionate 50 mcg/actuation 1 spray intranasal DAILY leg brace (RUTH Ankle Brace) As directed levothyroxine 125 mcg PO DAILY omeprazole 20 mg PO DAILY triamterene-hydrochlorothiazid 37.5-25 mg 1 tab PO DAILY Tobacco use date assessed: 01/04/25 Dental Screening Dental Screen Date: 01/04/25 Did you have a dental visit in the last 12 months?: Yes Did you have a dental problem in the last 6 months where you did not have access to dental care?: No Was dental information given to patient?: Patient has dentist HPI Annual PE HPI Details Patient presents for physical PFSH Medical History (Updated 01/04/25 @ 15:47 by Kenna Aden MD) Normal pelvic exam Annual physical exam Hyperglycemia Hypothyroid Hyperlipidemia Overweight Right ankle injury Surgical History (Updated 01/04/25 @ 15:53 by Kenna Aden MD) Hx of colonoscopy Hx of section Family History Father Asthma Mother No problems noted. Social History Housing: House Alcohol intake: current Alcohol intake frequency: a few times a month Patient Tobacco Use Status: Never used Tobacco e-Cigarette/Vaping Use: Never Used service: No Current occupational status: employed Cognitive needs: No Hearing needs: No Vision needs: Yes Questionnaire PHQ-9 Over the last 2 weeks, how often have you been bothered by any of the following problems? 1. Little interest or pleasure in doing things: not at all 2. Feeling down, depressed, or hopeless: not at all 3. Trouble falling or staying asleep, or sleeping too much: not at all 4. Feeling tired or having little energy: not at all 5. Poor appetite or overeating: not at all 6. Feeling bad about yourself - or that you are a failure or have let yourself or your family down: not at all 7. Trouble concentrating on things, such as reading the newspaper or watching television: not at all 8. Moving or speaking so slowly that other people could have noticed. Or the opposite - being so fidgety or restless that you have been moving around a lot more than usual: not at all 9. Thoughts that you would be better off or of hurting yourself in some way: not at all Total score: 0 Depression Screening Interpretation: Negative Depression Screening Done: Yes 82395 - PHQ-9 Billing: Yes Source: Developed by Drs. Beau Elliott, Melinda Carbajal, Tanner Estrada and colleagues, with an educational geovanny from [employer]. Thrive Questionnaire Date Thrive assessed: 01/04/25 I am a: Patient What is your living situation today?: I have a steady place to live Within the past 12 months, did the food you bought not last and you didn't have the money to get more?: Never true Within the past 12 months, did you worry whether your food would run out before you got money to buy more?: Never true Do you have trouble paying for medicines?: No Do you have trouble getting transportation to medical appointments?: No Do you have trouble paying your heating and electricity bill?: No Do you have trouble taking care of your child, family member or friend?: No Do you have trouble with day-to-day activities such as bathing, preparing meals, shopping, managing finances, etc.?: No Are you currently unemployed and looking for a job?: No Are you interested in more education?: No Please select the resources that you would like help with: None THRIVE Score: 0 AUDIT C Alcohol Use Questionnaire (AUDIT-C) 1. How often do you have a drink containing alcohol?: Never 3. How often do you have six or more drinks on one occasion?: Never Total Score: 0 MERCY-7 AMB Questionnaire MERCY-7 Date MERCY - 7 assessed: 01/04/25 Feeling nervous, anxious, or on edge: 0 = Not at all Not being able to stop or control worryin = Not at all Worrying too much about different things: 0 = Not at all Trouble relaxin = Not at all Being so restless that it is hard to sit still: 0 = Not at all Becoming easily annoyed or irritable: 0 = Not at all Feeling afraid as if something awful might happen: 0 = Not at all Total MERCY-7 score (0-4 normal; 5-9 mild; 10-14 moderate; 15-21 severe): 0 Source: Developed by Drs. Beau Elilott, Melinda Carbajal, Tanner Estrada and colleagues, with an educational geovanny from [employer]. MERCY-7 Assessment Billing MERCY-7 Assessment Tool: MERCY-7 Assessment 40787 Review of Systems Const All systems reviewed & are unremarkable except as noted in HPI and below Eyes Reports no additional complaints ENT Reports no additional complaints Card Reports no additional complaints Resp Reports no additional complaints GI Reports no additional complaints Reports no additional complaints Physical exam (Primary Care) Vital Signs: Last Vital Signs Temp 97.7 F 01/04/25 14:38 Pulse 67 01/04/25 14:38 Resp 18 01/04/25 14:38 BP 122/74 01/04/25 14:38 Pulse Ox 96 01/04/25 14:38 Oxygen Delivery Method Room Air 01/04/25 14:38 BMI result Body Mass Index 45.0 Tobacco/Smoking Status: Tobacco use Status Tobacco use date assessed 01/04/25 01/04/25 14:54 Patient Tobacco Use Status Never used Tobacco 01/04/25 14:38 e-Cigarette/Vaping Use Never Used 01/04/25 14:38 PHQ-9: PHQ-9 Score PHQ-9: Total score 0 01/04/25 14:41 Depression Screening Interpretation: Negative Thrive Assessment: Date of Thrive Assessment Date Thrive assessed 01/04/25 01/04/25 14:38 Const General: no acute distress HENMT Head: Yes normal to inspection General nose exam: Normal external nose present Face and sinus: Yes normal facial exam Eyes General: appearance normal, both eyes and all related structures Pupils: Equal, round and reactive pupils present EOM: EOMs intact bilaterally Neck Neck: Yes no lymphadenopathy and Yes supple Resp Effort & Inspection: normal respiratory effort Auscultation: clear to auscultation bilaterally Cardio Rhythm: regular rhythm Heart sounds: S1 normal heart sound present and S2 normal heart sound present GI Inspection: Yes normal to inspection Palpation (GI): Soft to palpation Percussion: Yes normal to percussion Auscultation: normal bowel sounds Neuro Cranial nerves: Yes Equal, round and reactive pupils present Coding Level of Care Code Est Pt Prev Care 40-64y(62683) Diagnoses Hypothyroid E03.9 HTN (hypertension) I10 Hyperlipidemia E78.5 Annual physical exam Z00.00 Additional Codes MERCY-7 Assessment Billing - MERCY-7 Assessment Tool: MERCY-7 Assessment 57056 ([id number]) PHQ-9 - 37167 - PHQ-9 Billing: Yes ([id number]) Assessment & Plan Assessment & Plan (1) Hypothyroid: Code(s): E03.9 - Hypothyroidism, unspecified Category: Medical Plan: Continue levothyroxine check TSH in 2 months and 6 months (2) HTN (hypertension): Code(s): I10 - Essential (primary) hypertension Category: Medical Plan: Continue current medications (3) Hyperlipidemia: Comment: hyperlipidemia refuses medications Code(s): E78.5 - Hyperlipidemia, unspecified Category: Medical Plan: Continue low-cholesterol diet (4) Annual physical exam: Code(s): Z00.00 - Encounter for general adult medical examination without abnormal findings Category: Medical Plan: Well-balanced diet regular physical activity discussed with the patient Orders: Orders TSH reflex Free T4 2 Months E03.9 - Hypothyroidism, unspecified Complete Blood Count Auto Diff 6 Months E03.9 - Hypothyroidism, unspecified, E78.5 - Hyperlipidemia, unspecified, I10 - Essential (primary) hypertension Hemoglobin A1c Today R73.9 - Hyperglycemia, unspecified Comprehensive [place]. Panel Fast 6 Months E03.9 - Hypothyroidism, unspecified, E78.5 - Hyperlipidemia, unspecified, I10 - Essential (primary) hypertension Lipid Panel 6 Months E03.9 - Hypothyroidism, unspecified, E78.5 - Hyperlipidemia, unspecified, I10 - Essential (primary) hypertension TSH reflex Free T4 6 Months E03.9 - Hypothyroidism, unspecified, E78.5 - Hyperlipidemia, unspecified, I10 - Essential (primary) hypertension
--- OUTSIDE RECORDS SUMMARY | 2025-01-04 15:39 | XMS_ITS | Clinical Summary ---
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 DX:Non-toxic go iter Hyperlipidemia 06/29/2014 DX:Hyperlipidemi a Insomnia 06/29/2014 DX:Insomnia Atypical chest pain 06/29/2014 DX:Atypical chest pain; COMMENT: Ruled out 03/23/13 [facility] SVT (supraventricular tachyc ardia) (CMS/HCC V24) 06/29/2014 DX:SVT (supraventricular tachycardia) (HCC); COMMENT: History as stated in hosp note Microscopic hematuria 06/29/2014 DX:Microsc opic hematuria; COMMENT: Seen by [facility] Urine for cytology neg x 3 2006 HTN (hypertension) DX:HTN (hyper tension) Vitamin D deficiency DX:Vitamin D deficiency Thyroiditis 05/11/2019 DX:Thyroiditis Family History Medical History Relation Name Comments Hypertension Father Hypertension Mother kidney failure Heart attack Paternal Grandfather Other: kidney problems Sister 1 head and neck cancer; asthma, cad Throat cancer Sister 1 Breast cancer Neg Hx Ovarian cancer Neg Hx Uterine cancer Neg Hx Relation Name Status Comments Daughter 1 Daughter 2 Alive x1 Father Maternal Grandfather Maternal Grandmother Mother Alive Paternal Grandfather Paternal Grandmother Sister 1 Alive Sister 2 Alive Son 1 Son 2 Alive x3 Social History Tobacco Use Types Packs/Day Years Used Date Smoking Tobacco: Former Smokeless Tobacco: Never Alcohol Use Standard Drinks/Week Comments Yes 0 (1 standard drink = 0.6 oz pur e alcohol) Comments Unknown Sex and Gender Information Value Date Recorded Sex Assigned at Not on file Legal Sex Female 12:46 AM EST Gender Identity Not on file Sexual Orientation Not on file Obstetrics History Last Filed Vital Signs Vital Sign Reading Time Taken Comments Blood Pressure 129/82 06/14/2023 8:52 AM EST Pulse 82 06/14/2023 8:52 AM EST Temperature - - Respiratory Rate - - Oxygen Saturation - - Inhaled Oxygen Concentration - - Weight 113 kg (250 lb) 06/14/2023 8:52 AM EST Height 162.6 cm (5' 4 ) 06/14/2023 8:52 AM EST Body Mass Index 42.91 06/14/2023 8:52 AM EST Plan of Treatment Upcoming Encounters Date Type Department Care Team (Late st Contact Info) Description 05/01/2025 10:00 AM EDT Appointment Radiology Department [address] [address] Health Maintenance Due Date Last Done Comments Pneumococcal Vaccine: 50+ Years (1 of 1 - PCV) 12/09/2013 Zoster Vaccines (1 of 2) 12/09/2013 Cholesterol Screening (Lipid Panel) 07/08/2022 Colorectal Cancer Screening: Colonoscopy 07/08/2022 Depression Screening 07/08/2022 HIV Screening 07/08/2022 Hepatitis C Screening 07/08/2022 Social Influencers of Health Screening 07/08/2022 Hypertension/CHF/CAD Annual BMP Blood Test 07/13/2022 RSV Immunization Adult Patients (1 - Risk 60-74 years 1-dose series) 2023 COVID-19 Vaccine ( - 2023- season) 2024 Cervical Cancer Screening: Pap Smear 11/16/2024 11/16/2021, 09/01/2018 Influenza Vaccine (Season Ended) 2025 DTaP,Tdap,and Td Vaccines (2 - Td or Tdap) 03/01/2026 03/01/2016 Breast Cancer Screening 04/18/2026 04/18/20 24, 04/18/2024, 03/16/2023, Additional history exists HIB Vaccines Aged Out No longer eligi ble based on patient's age to complete this topic HPV Vaccines Aged Out No longer eligi ble based on patient's age to complete this topic Hepatitis A Vaccines Aged Out No long er eligible based on patient's age to complete this topic Hepatitis B Vaccines Aged Out No long er eligible based on patient's age to complete this topic IPV Vaccines Aged Out No longer eligi ble based on patient's age to complete this topic MMR Vaccines Aged Out No longer eligi ble based on patient's age to complete this topic Meningococcal ACWY Vaccine Aged Out N o longer eligible based on patient's age to complete this topic Meningococcal B Vaccine Aged Out No l onger eligible based on patient's age to complete this topic Pneumococcal Vaccine: Pediatrics (0 to 5 Years) and At-Risk Patients (6 to 64 Years) Aged Out No longer eligible based on patient's age to complete this topic RSV Immunization Patients Under 20 months Aged Out No longer eligible based on patient's age to complete this topic Varicella Vaccines Aged Out No longer eligible based on patient's age to complete this topic Procedures Procedure Name Priority Date/Time Associated Diagnosis Comments SCREENING MAMMOGRAPHY BI 2-VIEW BREAST INC CAD Routine 04/18/2024 11:58 AM EDT Encounter for other screening for malignant neoplasm of breast PAP SMEAR Routine 11/16/2021 from Last 3 Months or Most Recently Relevant to Health Maintenance Results * SCREENING MAMMOGRAPHY BI 2-VIEW BREAST INC CAD (04/18/2024 11:58 AM EDT) Anatomical Region Laterality Modality Radiographic Ivis ging 03/16/2023 10:3 7 AM EDT Narrative 04/20/2024 5:55 PM EDT This is a summary report. The complete report is available in the patient's medical record. If you cannot access the medical record, please contact the sending organization for a detailed fax or copy. Full field digital screening tomosynthesis mammography, reviewed with CAD and compared to previous. The breasts are composed of fatty and fibroglandular tissue. ??No suspicious mass, architectural distortion or suspicious calcifications are identified. IMPRESSION: : No mammographic evidence of malignancy. BIRADS 1-Negative; N. Breast density: The breasts have scattered areas of fibroglandular density. 5 year breast cancer risk assessment 1.2 % Lifetime breast cancer risk assessment 6.0 % Breast cancer risk category Low (<15%) Location: [facility], [address] [place] [address], [address], [phone] Procedure Note Heather Omalley MD - 06/22/2024 This is a summary report. The complete report is available in thepatient's medical record. If you cannot access the medical record, pleasecontact the sending organization for a detailed fax or copy. Full field digital screening tomosynthesis mammography, reviewed with CADand compared to previous. The breasts are composed of fatty andfibroglandular tissue. No suspicious mass, architectural distortion orsuspicious calcifications are identified. IMPRESSION: : No mammographic evidence of malignancy. BIRADS 1-Negative; N. Breast density: The breasts have scattered areas of fibroglandulardensity. 5 year breast cancer risk assessment 1.2 % Lifetime breast cancer risk assessment 6.0 % Breast cancer risk category Low (<15%) Location: [facility], [address] [place] [address], [address], [phone] Kenna Aden MD IMG XR PROCEDURES Final Result * Pap smear (11/16/2021) 11/16/2021 Narrative HISTORICAL TESTING LAB RESULTING AGENCY - 12/01/2021 3:56 PM EDT [id number] THINPREP PAP, IMAGED: ATYPICAL SQUAMOUS CELLS OF UNDETERMINED SIGNIFICANCE (ASCUS) . ABUNDANT RED BLOOD CELLS ARE PRESENT. NOTE: THE PAP TEST IS A SCREENING TEST WITH AN INHERENT FALSE NEGATIVE RATE. AUTOMATED PRESCREENING OF ALL LIQUID BASED SPECIMENS IS PERFORMED BY THE THINPREP IMAGING SYSTEM UNLESS OTHERWISE STATED. NOEMI LANE , STEPH(ASCP) (CASE SCREENED 11 29 2021) JOLANTA RAM M.D. , PATHOLOGIST (CASE ELECTRONICALLY SIGNED 12 01 2021) RESULT OF APTIMA HIGH RISK HPV ASSAY: HIGH RISK HPV: ??NEGATIVE (SEROTYPES 16,18,31,33,35,39,45,51,52,56,58,59,66,68) COMPLETED ON 2021-12-01 ADEQUACY: SATISFACTORY ENDOCERVICAL/TRANSFORMATION ZONE COMPONENT PRESENT. SOURCE: THINPREP PAP HPV IF ASCUS, CERVICAL, IMAGED CLINICAL INFORMATION: HPV IF DIAGNOSIS OF ASCUS. MENOPAUSE, Z12.4 us Pelon Michel MD LAB CYTOLOGY ORDERABLES Final Result HISTORICAL TESTING LAB RESULTING AGENCY from Last 3 Months or Most Recently Relevant to Health Maintenance Care Teams Guest Experience Captain Relationship Specialty Start Date End Date Kenna Aden MD PCP - General Internal Medicine 12/14/11
== END 2025-01-04 15:50 | disposition home or self-care (01) ==
LOC: HO.HMCC 13:49
PROVIDERS: PCP Internal Medicine; Visit Provider Internal Medicine
DX: E03.9 Hypothyroidism, unspecified (principal); I10 Essential (primary) hypertension; E78.5 Hyperlipidemia, unspecified; Z00.00 Encounter for general adult medical examination without abnormal findings

== ENCOUNTER → 2025-01-04 13:48 | Outpatient (BNVA) | payer OTHER, SELFPAY | PROVIDERS: PCP Internal Medicine; Visit Provider Internal Medicine | DX: Z00.00 Encounter for general adult medical examination without abnormal findings (principal); E03.9 Hypothyroidism, unspecified; I10 Essential (primary) hypertension; E78.5 Hyperlipidemia, unspecified; Z79.899 Other long term (current) drug therapy; Z13.31 Encounter for screening for depression; Z13.30 Encounter for screening examination for mental health and behavioral disorders, unspecified | CPT/HCPCS: 96127; 99396 ==

== ENCOUNTER 2025-03-13 12:43 | Outpatient (REF) | payer OTHER, SELFPAY ==
--- OUTSIDE RECORDS SUMMARY | 2025-03-13 13:12 | XMS_ITS | Clinical Summary ---
Author Organization [facility] it Address [address] [place] [address] Care Team Providers Care Power Tool Repair Technician Name Role Phone Kenna Aden MD Primary Care Provider [phone] Surgical History Surgery Date Site/Laterality Comments SECTION PROCEDURE: [place] DELIVERY ONLY; COMMENT: 1987 OTHER SURGICAL HISTORY [...] opic hematuria; COMMENT: Seen by [facility] Urine for cytology neg x 3 [...] 05/01/2025 10:00 AM EDT Appointment Radiology Department [address] [address] Health Maintenance Due Date Last Done Comments Pneumococcal Vaccine: 50+ Years (1 of 1 - PCV) 12/09/2013 Zoster Vaccines (1 of 2) 12/09/2013 Cholesterol Screening (Lipid Panel) 07/08/2022 Colorectal Cancer Screening: Colonoscopy 07/08/2022 HIV Screening 07/08/2022 Hepatitis C Screening 07/08/2022 Social Influencers of Health Screening 07/08/2022 Hypertension/CHF/CAD Annual BMP Blood Test 07/13/2022 RSV Immunization Adult Patients (1 - Risk 60-74 years 1-dose series) 2023 COVID-19 Vaccine ( season) 2024 Depression Screening 07/29/2024 Cervical Cancer Screening: Pap Smear 11/16/2024 11/16/2021, 09/01/2018 Influenza Vaccine (#1) 2025 DTaP,Tdap,and Td Vaccines (2 - Td [...] are composed of fatty and fibroglandular tissue. No suspicious mass, architectural distortion or suspicious calcifications are identified. IMPRESSION: : No mammographic evidence of malignancy. BIRADS 1-Negative; N. Breast density: The breasts have scattered areas of fibroglandular density. 5 year breast cancer risk assessment 1.2 % Lifetime breast cancer risk assessment 6.0 % Breast cancer risk category Low (<15%) Location: [facility], [address] [place] [address], [address], [phone] Procedure Note Heather Omalley MD - 06/22/2024 [...] Breast cancer risk category Low (<15%) Location: [facility], [address] [place] [address], [address], [phone] us Kenna Aden MD IMG XR PROCEDURES Final Resul t * Pap smear (11/16/2021) 11/16/2021 Narrative HISTORICAL TESTING LAB RESULTING AGENCY - 12/01/2021 3:56 PM EDT [id number] THINPREP PAP, IMAGED: ATYPICAL SQUAMOUS CELLS OF [...] HIGH RISK HPV ASSAY: HIGH RISK HPV: NEGATIVE (SEROTYPES 16,18,31,33,35,39,45,51,52,56,58,59,66,68) COMPLETED ON 2021-12-01 ADEQUACY: SATISFACTORY ENDOCERVICAL/TRANSFORMATION ZONE COMPONENT PRESENT. SOURCE: THINPREP PAP HPV IF ASCUS, CERVICAL, IMAGED CLINICAL INFORMATION: HPV IF DIAGNOSIS OF ASCUS. MENOPAUSE, Z12.4 us Pelon Michel MD LAB CYTOLOGY ORDERABLES Final Result HISTORICAL TESTING LAB RESULTING AGENCY from Last 3 Months or Most Recently Relevant to Health Maintenance Care Teams Power Tool Repair Technician Relationship Specialty Start Date End Date Kenna Aden MD PCP - General Internal Medicine 12/14/11
[2025-03-13 16:03] LABS: Resp Syncy Virus RNA Qual PCR NEGATIVE (Negative); SARS COV2 PCR INHOUSE NEGATIVE (Negative)
== END 2025-03-13 12:44 | disposition home or self-care (01) ==
LOC: HO.LAB 12:43
PROVIDERS: PCP Internal Medicine; Visit Provider Family Medicine
DX: Z20.822 Contact with and (suspected) exposure to COVID-19 (principal); R09.89 Other specified symptoms and signs involving the circulatory and respiratory systems
CPT/HCPCS: 87637; 99212

== ENCOUNTER 2025-03-13 12:43 | Outpatient (AMB) | payer OTHER, SELFPAY ==
[2025-03-13 12:45] VITALS: BP 132/90; PULSE 75; RESP 17; TEMP 36.7; O2SAT 98; BMI 46.0
--- NOTE | 2025-03-13 12:45 | MHC.OFFWIV ---
Intake Vital Signs 03/13/25 12:45 Height 5 ft 4 in Weight 268 lb BMI 46.0 BP 132/90 H Blood Pressure Location Lt brachial Position Sitting Respiration 17 Pulse 75 Pulse Source Pulse Oximeter Temp 98.1 F Pulse Oximetry (%) 98 Oxygen Delivery Method Room Air Intake Visit Reasons: EP Post nasal drip + Chest gi for a few months Intake Note: Pt is here today c/o post nasal drip and chest congestion Patient Tobacco Use Status: Never used Tobacco Allergies penicillin V Allergy (Unknown, Verified 03/13/25 12:52) rash Medication List - Last Reconciled 03/13/25 by Eric Woodard MD amlodipine-olmesartan 5-40 mg 1 tab PO DAILY [custom molded semi rigid orthosis As directed] fluticasone propionate 50 mcg/actuation 1 spray intranasal DAILY leg brace (RUTH Ankle Brace) As directed levothyroxine 125 mcg PO DAILY triamterene-hydrochlorothiazid 37.5-25 mg 1 tab PO DAILY HPI EP Post nasal drip + Chest gi for a few months HPI Details Patient with nasal congestion rhinitis and postnasal drip as well as Chest congestion and cough She says that she has had symptoms like this off and on over the past few months. Most recently started 2 days ago Not currently taking any medicine for this [facility] Medical History (Updated 03/13/25 @ 13:09 by Eric Woodard MD) Normal pelvic exam Annual physical exam Hyperglycemia Hypothyroid Hyperlipidemia Overweight Right ankle injury Surgical History (Updated 01/04/25 @ 15:53 by Kenna Aden MD) Hx of colonoscopy Hx of section Family History Father Asthma Mother No problems noted. Social History Housing: House Alcohol intake: current Alcohol intake frequency: a few times a month Patient Tobacco Use Status: Never used Tobacco e-Cigarette/Vaping Use: Never Used service: No Current occupational status: employed Cognitive needs: No Hearing needs: No Vision needs: Yes Review of Systems Const Denies chills, Denies fatigue, Denies fever(s), Denies headache(s) and Denies weakness ENT Denies dizziness and Denies headache(s) Card Denies dyspnea Resp Reports cough, Denies dyspnea, Denies wheezing and Denies other ( shortness of breath) Musc Denies numbness and Denies tingling Neuro Denies dizziness, Denies headache(s), Denies numbness, Denies tingling, Denies paresthesias and Denies weakness Psych Denies anxiety and Denies depression Endo Denies fatigue Aller/Immun Denies wheezing Physical Exam Vital Signs: Last Vital Signs Temp 98.1 F 03/13/25 12:45 Pulse 75 03/13/25 12:45 Resp 17 03/13/25 12:45 BP 132/90 H 03/13/25 12:45 Pulse Ox 98 03/13/25 12:45 Oxygen Delivery Method Room Air 03/13/25 12:45 BMI result Body Mass Index 46.0 Const Other: Patient appears mildly ill. Flushed General: no acute distress and well developed Nutritional Appearance: well nourished Orientation/consciousness: patient oriented x3 HEENT Head: Yes normocephalic and Yes atraumatic Eyes General: appearance normal, both eyes and all related structures Pupils: Equal, round and reactive pupils present EOM: EOMs intact bilaterally Resp Other: Coarse breath sounds with some scattered wheezes and upper airway secretions sounds Effort & Inspection: normal respiratory effort Auscultation: clear to auscultation bilaterally Cardio Rate: regular rate Rhythm: regular rhythm Heart sounds: S1 normal heart sound present, S2 normal heart sound present, no gallops, no murmurs and no rubs Neuro General: patient oriented x3 and gait normal Cranial nerves: Yes Equal, round and reactive pupils present Psych Affect: normal affect Assessment & Plan Assessment & Plan (1) Bronchitis: Code(s): J40 - Bronchitis, not specified as acute or chronic Plan: Likely bronchitis Will give her a Z-Darwin. She declines prednisone Finish all medication unless there is a problem. Call for any problems Call or return to office if worsening or not improving Can not rule out underlying viral illness such as COVID/flu/RSV-nasal swab sent to lab Orders: Orders SARS-CoV2/FLU/RSV Today R09.89 - Other specified symptoms and signs involving the circulatory and respiratory systems, Z20.822 - Contact with and (suspected) exposure to COVID-19 Medications: New azithromycin (Zithromax Z-Darwin) take 500 mg today (day 1), then 250 mg for 4 days (days 2-5) PO 6 tabs 0RF 5 days Coding Level of Care Code Est Pt Level 3 (43820) Diagnoses Bronchitis J40
== END 2025-03-13 14:20 | disposition home or self-care (01) ==
PROVIDERS: PCP Internal Medicine; Visit Provider Family Medicine
DX: J40 Bronchitis, not specified as acute or chronic (principal)

== ENCOUNTER 2025-03-16 07:45 | Outpatient (REF) | payer OTHER, SELFPAY ==
--- OUTSIDE RECORDS SUMMARY | 2025-03-16 07:47 | XMS_ITS | Clinical Summary ---
Author Organization [facility] it Address [address] [place] [address] Care Team Providers Care Medical Instructor Name Role Phone Kenna Aden MD Primary Care Provider [phone] Surgical History Surgery Date Site/Laterality Comments SECTION PROCEDURE: NM DELIVERY ONLY; COMMENT: 1987 OTHER SURGICAL HISTORY [...] opic hematuria; COMMENT: Seen by [facility] Urine for cytology neg x 3 2006 [...] 05/01/2025 10:00 AM EDT Appointment Radiology Department [address] [address] Health Maintenance Due Date Last Done Comments [...] Breast cancer risk category Low (<15%) Location: [facility], [address] [place] [address], [phone], [phone] Procedure Note Heather Omalley MD - 06/22/2024 [...] Breast cancer risk category Low (<15%) Location: [facility], [address] [place] [address], [phone], [phone] us Kenna Aden MD IMG XR PROCEDURES Final Resul t * Pap smear (11/16/2021) 11/16/2021 Narrative HISTORICAL TESTING LAB RESULTING AGENCY - 12/01/2021 3:56 PM EDT [id number] THINPREP PAP, IMAGED: ATYPICAL SQUAMOUS CELLS OF [...] Recently Relevant to Health Maintenance Care Teams Medical Instructor Relationship Specialty Start Date End Date Kenna Aden MD PCP - General Internal Medicine 12/14/11
[2025-03-16 10:28] LABS: Hemoglobin A1C 146.0225 umol/L; Total Hemoglobin (HGBA1C) 3993.2581 umol/L
== END 2025-03-16 07:46 | disposition home or self-care (01) ==
LOC: HO.HMGCLDS 07:45
PROVIDERS: PCP Internal Medicine; Visit Provider Internal Medicine
DX: E03.9 Hypothyroidism, unspecified (principal); R73.9 Hyperglycemia, unspecified
CPT/HCPCS: 36415; 83036; 84443